=== PATIENT | male | born 2000 | race Hispanic/Latino ===

== ENCOUNTER 2022-05-25 20:31 | Emergency (ER) | payer MEDICAID, OTHER ==
[~2022-05-25] VITALS: Ht 182.9 cm; Wt 146.5 kg
[2022-05-25 22:46] VITALS: BP 123/64
[2022-05-25] MEDS ORDERED: CLIN-141 PO (23:10)
[2022-05-25] MEDS ORDERED: KETOROLAC 15MG/ML VIAL (15MG/ML) IM ONE (23:30)
== END 2022-05-25 23:19 | disposition home or self-care (01) ==
LOC: EDH 20:31
DX: K04.7 Periapical abscess without sinus (principal)
CPT/HCPCS: 99283; 96372; J1885